=== PATIENT | male | born 1950 | race Caucasian/White ===

== ENCOUNTER 2023-11-16 11:40 | Outpatient (AMB) | payer BC, SELFPAY ==
--- NOTE | 2023-11-16 11:42 | AM.OFFWIN_ITS ---
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 While every effort has been made to ensure accuracy, natural resources specialist errors may have been included. The patient is a 73 year old male who presents to the clinic today with request for medication refill. He notes that he thought he had enough medication when traveling up to [place] to get closure after the loss of his several months ago, however he is a few days shy. He is actively in the process of going back to [place], and ran out of his medication yesterday having no dose for today. He denies chest pain, palpitations, or any other concerning features. He is typically very compliant with his medication. [facility] Social History Patient Tobacco Use Status: Never used Tobacco Review of Systems Const All systems reviewed & are unremarkable except as noted in HPI and below Physical Exam Vital Signs: Last Vital Signs Temp 98.1 F 11/16/23 11:43 Pulse 105 H 11/16/23 11:43 BP 138/86 11/16/23 11:43 Pulse Ox 98 11/16/23 11:43 Oxygen Delivery Method Room Air 11/16/23 11:43 BMI result Body Mass Index 21.6 Const General: cooperative, healthy appearing, comfortable, no acute distress and alert Orientation/consciousness: patient oriented x3 Limitations: no limitations Resp Effort & Inspection: normal respiratory effort and able to speak in complete sentences Auscultation: clear to auscultation bilaterally Cardio Jugular venous distension: no JVD Palpation: normal PMI Rate: regular rate Heart sounds: S1 normal heart sound present, S2 normal heart sound present, no click, no gallops, no murmurs and no rubs Skin General skin exam: no rashes or lesions noted, elasticity normal and turgor normal Neuro General: patient oriented x3 Psych Appearance: grossly normal Mental Status: mental status grossly normal Speech and movement: Normal speech and movement present Affect: normal affect Assessment & Plan Assessment & Plan (1) Hypertension: Code(s): I10 - Essential (primary) hypertension Qualifiers: Hypertension type: unspecified Qualified Code(s): I10 - Essential (primary) hypertension Plan: Chronic controller medication carvedilol refilled for vacation override request as he has run out of his medication. He reports that he has already been notified that his mail-order delivery has been delivered to his home, so he will have adequate supply moving forward once he returns home to [place] where he is headed to by car today. Medications: New carvedilol must administer with a meal/food 6.25 mg PO BID 7 days 14 tabs 0RF Coding Level of Care Code Est Pt Level 3 (86483) Diagnoses Hypertension, unspecified type I10 Hypertension type: unspecified
[2023-11-16 11:43] VITALS: BP 138/86; PULSE 105; TEMP 36.7; O2SAT 98; BMI 21.6
== END 2023-11-16 13:07 | disposition home or self-care (01) ==
PROVIDERS: Visit Provider Registered Nurse
DX: I10 Essential (primary) hypertension (principal)
CPT/HCPCS: 99213